=== PATIENT | male | born 1995 | race Caucasian/White ===

== ENCOUNTER 2025-03-17 07:51 | Emergency (ER) | payer BC ==
[2025-03-17] MEDS: Acetaminophen 500 MG Tab PO ONE (08:50)
[2025-03-17 08:56] LABS: BASOPHILS ABSOLUTE AUTO 0.03 K/uL (0.00-0.10); BASOPHILS PERCENT AUTO 0.3 % (0.1-1.3); EOSINOPHILS PERCENT AUTO 0.2 % (0.0-5.4); HEMATOCRIT 44.6 % (38.4-49.7); HEMOGLOBIN 15.5 g/dL (12.9-16.9); IMMATURE GRAN ABSOLUTE AUTO 0.03 K/uL (0.00-0.23); IMMATURE GRAN PERCENT AUTO 0.3 % (0.0-0.7); LYMPHOCYTES ABSOLUTE AUTO 0.46 K/uL (0.8-3.3); LYMPHOCYTES PERCENT AUTO 4.2 % (11.4-47.7); MEAN CORPUSCULAR HEMOGLOBIN 28.9 pg (31.6-35.5); MEAN CORPUSCULAR HGB CONC 34.8 g/dL (31.6-35.5); MEAN CORPUSCULAR VOLUME 83.2 fL (81.4-99.0); MONOCYTES ABSOLUTE AUTO 0.76 K/uL (0.20-0.90); MONOCYTES PERCENT AUTO 6.9 % (3.3-12.6); NEUTROPHILS ABSOLUTE AUTO 9.68 K/uL (1.0-7.6); NEUTROPHILS PERCENT AUTO 88.1 % (40.0-78.1); PLATELET COUNT,PLT 111 K/uL (130-375); RED BLOOD CELL COUNT 5.36 M/uL (4.14-5.76)
[2025-03-17 08:59] LABS: EOSINOPHILS ABSOLUTE AUTO 0.02 K/uL (0.00-0.40)
[2025-03-17 09:28] LABS: APPEARANCE,URINE SLIGHTLY CLOUDY (CLEAR); BILIRUBIN,URINE NEGATIVE (NEGATIVE); GLUCOSE,URINE NEGATIVE (NEGATIVE); KETONES,URINE NEGATIVE (NEGATIVE); LEUKOCYTE ESTERASE,URINE NEGATIVE (NEGATIVE); NITRITE,URINE NEGATIVE (NEGATIVE); OCCULT BLOOD,URINE NEGATIVE (NEGATIVE); PH,URINE 6.5 (5.0-8.0); PROTEIN,URINE 30 mg/dL (NEGATIVE); UROBILINOGEN,URINE 0.2 EU/dL (0.2-1.0)
[2025-03-17 09:30] LABS: A/G RATIO 1.1 (1.2-2.2); ALANINE AMINOTRANSFERASE,ALT 32 U/L (12-78); ALBUMIN 3.9 g/dL (3.4-5.0); ALKALINE PHOSPHATASE 62 U/L (46-116); ASPARTATE AMNIOTRANSFERASE,AST 24 U/L (15-37); BILIRUBIN TOTAL 1.3 mg/dL (0.2-1.0); BLOOD UREA NITROGEN,BUN 17 mg/dL (7-18); C-REACTIVE PROTEIN 8.81 mg/dL (<0.50); CALCIUM 9.1 mg/dL (8.5-10.1); CARBON DIOXIDE,CO2 26 mmol/L (21-32); CHLORIDE,CL 99 mmol/L (100-108); CREATININE 1.7 mg/dL (0.8-1.3); EST CRCL DRUG DOSING (CG) 75.22 mL/min; ESTIMATED GFR 56 mL/min (>60); GLUCOSE RANDOM 128 mg/dL (74-106); POTASSIUM,K 3.6 mmol/L (3.6-5.2); PROTEIN TOTAL,TP 7.4 g/dL (6.4-8.2); SODIUM,NA 137 mmol/L (140-148)
[2025-03-17 09:33] LABS: AMORPHOUS SEDIMENT,URINE NOT SEEN; BACTERIA,URINE NOT SEEN; COLOR,URINE OTHER (YELLOW); EPITHELIAL CELLS,URINE NOT SEEN; MUCUS,URINE MODERATE; RBC,URINE 0-5 (0-5); WBC,URINE 0-5 (0-5)
[2025-03-17 09:34] LABS: ANION GAP 15.6 mmol/L (5.0-14.0)
[2025-03-17 09:40] LABS: LYME AB IgG Negative (Negative); LYME AB IgM Negative (Negative)
[2025-03-17 09:54] VITALS: BP 132/79; PULSE 55
[2025-03-21 01:57] LABS: A. PHAGOCYTOPHILUM AB, IGG <1:80 (<1:80); BABESIA MICROTI IGG < 1:16 (< 1:16); EHRLICHIA CHAFFEENSIS AB, IGG <1:64 (<1:64); LYME VLSE1/PEPC10 ABS, ELISA 0.35 IV (<=0.90)
== END 2025-03-17 10:59 | disposition home or self-care (01) ==
LOC: JP.ED 07:51
DX: B34.9 Viral infection, unspecified (principal); M79.10 Myalgia, unspecified site
CPT/HCPCS: 36415; 80053; 81001; 83605; 85025; 86140; 86618; 86666; 86753; 87635; 99283; A9270; U0002